=== PATIENT | male | born 1955 | race Caucasian/White ===

== ENCOUNTER 2020-06-25 07:36 | Observation (INO) | payer MEDICARE, OTHER ==
[~2020-06-25] VITALS: Ht 180.3 cm; Wt 102.5 kg
[2020-06-25] VITALS (14 sets, daily range): BP systolic 124–150; BP diastolic 55–97
--- NOTE | ~2020-06-25 | H ---
[address] [address] HISTORY AND PHYSICAL Name: Pema JACOB Room: [address] Roslyn Torres#: [id number] Admission: 06/25/20 Attend Phys: Stanford Burton MD, Discharge: 06/26/20 Date of : 55 Report #: [id number] THIS REPORT FOR: //name// cc: Laazro Welch James V. DO ~ Please refer to the History and Physical performed in the physician's office. By: [facility] Records Staff [facility] /JERRY
[~2020-06-25 07:36] MED LIST: ACCUPRIL40 MG PO; ASPIR 8181 MG PO; BENTYL 20 MG TA20 M1 PO; EFFIENT10 MG PO; LASIX 20 MG TAB20 MG PO; LIPITOR80 MG PO; ONDANSETRON HCL4 M2 PO; VOTRIENT200 MG PO
[2020-06-25 08:49] LABS: HEMATOCRIT 47.6 % (42.0-52.0); HEMOGLOBIN 16.3 gm/dL (14.0-18.0); MCH 37.7 pg (26.0-34.0); MCHC 34.3 g/dL (28.0-37.0); MCV 109.9 fL (80.0-100.0); MPV 9.5 fl. (7.2-11.1); RBC 4.33 mil/uL (4.50-6.00); WBC 4.8 thou/uL (4.0-11.0)
[2020-06-25 08:54] LABS: ANION GAP 10 mmol/L (7-16); BUN 17 mg/dL (7-18); CALCIUM 8.1 mg/dL (8.5-10.1); CHLORIDE 104 mmol/L (98-107); CO2 23 mmol/L (21-32); CREATININE 1.4 mg/dL (0.6-1.3); GLUCOSE 103 mg/dL (70-99); POTASSIUM 4.4 mmol/L (3.5-5.1); SODIUM 137 mmol/L (136-145)
[2020-06-25 08:57] LABS: APTT 28.7 Seconds (25.0-31.3); PROTIME 10.7 Seconds (9.20-11.50)
[2020-06-25 08:58] LABS: ALBUMIN 3.4 g/dL (3.4-5.0); ALKALINE PHOSPHATASE 91 U/L (46-116); CHOLESTEROL 182 mg/dL (<200); HDL CHOLESTEROL 34 mg/dL (>40); LDL CHOLESTEROL 112 mg/dL (<100); SERUM ASSESSMENT Clear; SGOT 28 U/L (15-37); SGPT 30 U/L (30-65); TC:HDL 5.4 Ratio (Not establshd); TOTAL BILIRUBIN 0.8 mg/dL (<0.1-1.0); TOTAL PROTEIN 7.3 g/dL (6.4-8.2); TRIGLYCERIDE 182 mg/dL (<150); VLDL 36 mg/dL (<40)
[2020-06-25] MEDS ORDERED: CREON DR 3,0001 EACH PO (09:13)
--- NOTE | 2020-06-25 14:25 | EKG ---
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 : 1955 Requested By: Stanford Burton Order Number: [id number] Stefan MD: Stanford Burton Measurements Intervals [place] Rate: 69 P: [place]: QRS: -46 QRSD: 114 T: 259 QT: 392 QTc: 420 Interpretive Statements Atrial fibrillation Incomplete left bundle branch block Inferior infarct, age indeterminate possible Compared to ECG 07/24/2017 07:55:55 Incomplete left bundle-branch block now present Sinus rhythm no longer present Myocardial infarct finding still present Electronically Signed On 06-25-2020 14:25:24 CDT by Stanford Burton [email or web address] <ELECTRONICALLY SIGNED> By: Stanford Burton MD, [facility] 06/25/20 1425 3 3 Stanford Burton MD, [facility] /EPI
--- NOTE | 2020-06-25 14:26 | EKG ---
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1955 Requested By: Stanford Burton Order Number: [id number] Stefan MD: Stanford Burton Measurements Intervals [place] Rate: 82 P: [place]: QRS: -43 QRSD: 112 T: -43 QT: 394 QTc: 461 Interpretive Statements Atrial fibrillation Incomplete left bundle branch block Inferior infarct, old possible Compared to ECG 06/25/2020 09:14:34 No significant changes Electronically Signed On 06-25-2020 14:25:52 CDT by Stanford Burton [email or web address] <ELECTRONICALLY SIGNED> By: Stanford Burton MD, [facility] 06/25/20 1425 1206 1206 Stanford Burton MD, [facility] /EPI
--- NOTE | 2020-06-25 14:49 | CARD ---
[address] [address] CARDIAC CATH REPORT Name: Pema JACOB Room: [address] Roslyn Torres#: [id number] Admission: 06/25/20 Attend Phys: Stanford Burton MD, Discharge: Date of : 55 Report #: [id number] THIS REPORT FOR: //name// cc: Lazaro Welch James V. DO ~ APPROVED REPORT Study performed: 06/25/2020 09:23:45 Patient Details Patient Status: Out-Patient Room #: 215 The patient is a 64 year-old male Event Personnel Stanford Burton Oracle Pl Sql Developer, Jimi Diaz RN Box Turner, Lazaro Francis MALTED MILK SUPERVISOR Scrub, Chayo Sauceda RTR Monitor Procedures Performed Art Access - R femoral artery, Left Heart Cath w/or w/o Coronaries LHC, [facility] [facility] w/wo Plasty Single RPLA , [facility] [facility] w/wo Plasty Additional RPDA , Hemostasis w/ Angioseal Indication Unstable angina , Positive stress test Risk Factors Obesity, Hypercholesterolemia Previous Procedures/Diagnoses Previous PCI, Previous CT Admission/Lab Medications/Medications given during procedure Angiomax IV 16 ml, Angiomax Drip IV 35.9 ml per hr, Effient PO 60 mg, Aspirin PO 162 mg Procedure Narrative The patient was brought electively to the Cardiac Catheterization Laboratory and was prepped and draped in a sterile manner. The right femoral groin area was infiltrated with 2% Lidocaine subcutaneous anesthesia. A 6F [place] sheath was inserted into the right femoral artery. Coronary angiography was performed using coronary diagnostic catheters. The right coronary system was accessed and visualized with a 6F 3DRC catheter. The left coronary system was accessed and visualized with a 6F JL4 catheter. The [place] [address] CARDIAC CATH REPORT Name: Pema JACOB Room: [address]#: [id number] Admission: 06/25/20 Attend Phys: Stanford Burton MD, Discharge: Date of : 55 Report #: [id number] and visualized with a 6F Pigtail catheter. Left ventricular/Aortic Valve gradient assessed via catheter pullback. Left ventriculogram was performed in GONZALEZ projection. Pre-demployment femoral angiogram was performed . Closure device was deployed with a 6 Fr Angioseal STS. The patient tolerated the procedure well and there were no complications associated with the procedure. There was no hematoma. The MERCADO graft was accessed with a 6F JR4 catheter and visualized with a 6F IM catheter. Intraoperative Conscious Sedation Sedation start time: 09:43 Case end Time: 11:07 Versed 2 mg Fluoro Time: 31.3 minutes Dose: DAP 126351 cGycm2 4527 mGy Contrast Type and Amount: Visipaque 550 ml Coronary Angiography The patient's coronary anatomy is right dominant. [place] Artery Percent Stenosis 1. Widely patent MERCADO graft to the mid LAD Diagnostic Cath Left Main 30% distal left main coronary narrowing LAD 100% proximal LAD occlusion after the first diagonal branch Diagonal 1 0% narrowing Circumflex 100% proximal occlusion Right Coronary Large dominant vessel with 40% proximal 40% mid and 30% distal narrowing with 90% mid posterolateral branch stenosis and tandem 80 and 90% proximal and mid posterior descending branch stenosis Left Ventriculography The left ventricle is normal in size with Decreased contractility. The left ventricular ejection fraction is estimated to be 40%. Left ventricular wall motion abnormalities are present. There is no mitral insufficiency. Inferobasilar akinesis and mild mid anterior hypokinesis is noted Hemodynamics The aortic pressure is 132/77 mmHg with a mean of 95 mmHg. The left ventricular pressure is 133/8 mmHg with a mean of mmHg. The left ventricular end diastolic pressure is 13 mmHg. [place] [address] CARDIAC CATH REPORT Name: Pema JACOB Room: [address] [id number] Admission: 06/25/20 Attend Phys: Stanford Burton MD, Discharge: Date of : 55 Report #: [id number] across the aortic valve upon pullback. PCI Technique Lesion Anticoagulation was achieved with Angiomax. Patient was preloaded with Angiomax IV 16 ml. Percutaneous coronary intervention was performed on the right posterior lateral artery segment. The lesion stenosis prior to intervention was 90% with MONIKA 3 flow. A 6FR LAUNCHER 3DRC Guide Catheter was used to engage the right ostium. A ProwaterFlex 180CM Interventional Guidewire was used to cross the lesion. BALLOON DILATION A Balloon catheter Mini Trek RX 2.0 X 12 was inserted and inflated up to 12.00atm for 14seconds. Additional Inflation: 18.00atm for 9seconds. Additional Inflation: 20.00atm for 8seconds. STENT DEPLOYMENT A drug-eluting stent Gerlaw RX Stent 2.0X15mm was inserted and inflated up to 10.00atm for 7seconds. Additional Inflation: 12.00atm for 7seconds. Additional Inflation: 14.00atm for 7seconds. Final angiography reveals 0 % stenosis with MONIKA 3 flow. COMMENTS PCI was complex by virtue of marked calcification and tortuosity of the right coronary system requirement placement of a bailey wire for balloon positioning and stent deployment PCI Technique Lesion 2 Percutaneous Coronary Intervention was performed on the right posterior descending artery segment. Patient was preloaded with Angiomax IV 16 ml. The lesion stenosis prior to intervention was 90% with MONIKA 3 flow. A 6FR LAUNCHER 3DRC Guide Catheter was used to engage the right ostium. A ProwaterFlex 180cm and BMW 190cm Interventional Guidewire was used to cross the lesion. Balloon Dilation A Balloon catheter Mini Trek RX 2.0 X 12 was inserted and inflated up to 12.00atm for 11seconds. Additional Inflation: 15.00atm for 7seconds. Additional Inflation: 18.00atm for 6seconds. Additional inflations: 18 yesenia for 10 seconds; 18 yesenia for 4 seconds; 20 yesenia for 9 seconds. A balloon catheter NC Euphora 2.25 x 12 was inserted and inflated up to 10 yesenia for 9 seconds. Additional inflations: 14 yesenia for 8 seconds; 16 yesenia for 10 seconds; 20 yesenia for 7 seconds; 22 yesenia for [address] [address] CARDIAC CATH REPORT Name: Pema JACOB Room: [address] Roslyn SmithBarryMarleneBarry#: [id number] Admission: 06/25/20 Attend Phys: Stanford Burton MD, Discharge: Date of : 55 Report #: [id number] Stent Deployment A drug-eluting stent John RX Stent 2.0X8mm was inserted and inflated up to 10.00atm for 8seconds. Additional Inflation: 12.00atm for 6seconds. Additional Inflation: 14.00atm for 6seconds. A 2nd drug eluting stent John RX 2.0 x 12mm was inserted and inflated up to 14 yesenia for 7 seconds. Additional inflations: 17 yesenia for 7 seconds; 18 yesenia for 7 seconds; 20 yesenia for 8 seconds. A 3rd drug eluting stent Gerlaw RX 2.0 x 8mm was inserted and inflated up to 12 yesenia for 7 seconds. Additonal inflations: 15 yesenia for 7 seconds; 16 yesenia for 6 seconds. Final angiography reveals 10 % stenosis with MONIKA 3 flow. Comments 014 pro-water flex and 014 BMW wires were placed in the distal right coronary system with the use of the bailey wire technique Conclusion 1. Severe multivessel coronary artery disease characterized by the following: A 30% distal left main coronary B total occlusion the proximal LAD after the prominent first diagonal branch C total occlusion of the proximal nondominant circumflex D large dominant right coronary artery with 40% proximal and mid vessel narrowing with 30% distal narrowing; there was 90% stenosis in the midportion of the prominent posterior lateral branch and tandem 80 and 90% stenosis of the prominent posterior descending branch 2. Single patent MERCADO graft to the mid LAD with good distal flow 3. Moderate impairment in global LV function, estimated ejection fraction being 40% with inferobasal akinesis and mild mid anterior hypokinesis 4. Normal left-sided hemodynamic study 5. Successful PCI with deployment of drug-eluting stent in the mid portion of the postero- lateral branch of the distal right coronary [address] [address] CARDIAC CATH REPORT Name: Pema JACOB Room: [address] Roslyn Torres#: [id number] Admission: 06/25/20 Attend Phys: Stanford Burton MD, Discharge: Date of : 55 Report #: [id number] artery with 0% residual narrowing 6 successful PCI with deployment of sequential drug-eluting stents at the sites of tandem 80 and 90% posterior descending branch stenosis with 10% residual narrowing and MONIKA-3 flow to the distal vessel Recommendations Cardiac Risk Reduction Program Aggressive Medical Therapy Medications Administered Aspirin (any) Prasugrel Diagnostic Cath Approved by: Stanford Burton MD Date/Time: 06/25/2020 14:45:50 <ELECTRONICALLY SIGNED> By: Stanford Burton MD, FACC 06/25/20 1449 1449 1449Stanford Burton MD, FACC /INF
[2020-06-26 04:00] VITALS: BP 125/74
[2020-06-26 04:51] LABS: HEMATOCRIT 44.1 % (42.0-52.0); HEMOGLOBIN 15.2 gm/dL (14.0-18.0); MCH 37.7 pg (26.0-34.0); MCHC 34.5 g/dL (28.0-37.0); MCV 109.5 fL (80.0-100.0); MPV 9.7 fl. (7.2-11.1); RBC 4.02 mil/uL (4.50-6.00); RDW-CV 16.1 % (10.5-14.5); WBC 5.2 thou/uL (4.0-11.0)
[2020-06-26 05:25] LABS: ALBUMIN 2.9 g/dL (3.4-5.0); CALCIUM 8.1 mg/dL (8.5-10.1); CREATININE 1.4 mg/dL (0.6-1.3); POTASSIUM 4.3 mmol/L (3.5-5.1); TOTAL BILIRUBIN 0.7 mg/dL (<0.1-1.0); TOTAL PROTEIN 6.4 g/dL (6.4-8.2)
[2020-06-26 05:37] LABS: TROPONIN-I LEVEL 1.44 ng/mL (<0.06)
[2020-06-26 07:50] VITALS: BP 125/81
[2020-06-26] MEDS ORDERED: EFFIENT10 MG PO (09:39)
[2020-06-26 10:46] VITALS: BP 138/87
[2020-06-26 10:47] VITALS: BP 125/81
--- NOTE | 2020-06-26 13:40 | EKG ---
[place] [address] ELECTROCARDIOGRAM REPORT Name: Pema JACOB Room: [address] [id number] Admission: 06/25/20 Attend Phys: Sarah Valdes Discharge: 06/26/20 Date of : 55 Date of Service: 06/26/20 0651 Report #: [id number] THIS REPORT FOR: //name// 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 : 1955 Requested By: Stanford Burton Order Number: [id number] Reading MD: Jamil Cantu Measurements Intervals [place] Rate: 68 P: [place]: QRS: -48 QRSD: 111 T: -75 QT: 424 QTc: 451 Interpretive Statements Atrial fibrillation Abnormal R-wave progression, late transition Inferior infarct, age indeterminate Lateral leads are also involved Compared to ECG 06/25/2020 12:06:10 Left bundle-branch block no longer present Myocardial infarct finding still present Electronically Signed On 06-26-2020 13:40:15 CDT by Jamil Cantu [email or web address] <ELECTRONICALLY SIGNED> By: Jamil Cantu MD, FACC 06/26/20 1340 0651 0651 Jamil Cantu MD, FACC /EPI
--- NOTE | 2020-06-27 09:54 | D ---
[address] [address] DISCHARGE SUMMARY Name: Pema JACOB Room: [address] Roslyn Torres#: [id number] Admission: 06/25/20 Attend Phys: Stanford Burton MD, Discharge: 06/26/20 Date of : 55 Report #: [id number] THIS REPORT FOR: //name// cc: Lazaro Welch James V. DO ~ THIS REPORT FOR: //name// CC: Lazaro Burton DATE OF SERVICE: 06/26/2020 FINAL DISCHARGE DIAGNOSES: 1. Abnormal nuclear stress test. 2. Recurrent and unstable angina. 3. Coronary artery disease, status post remote coronary artery bypass grafting. 4. Status post multiple percutaneous coronary interventions, most recently to the distal right coronary artery on 06/25/2020. 5. Persistent atrial fibrillation. 6. Hypertension. 7. Ischemic cardiomyopathy. 8. Hyperlipidemia. PROCEDURES: 06/25/2020 -- left heart catheterization, left ventriculography, selective coronary arteriography, aortocoronary bypass graft study with MERCADO graft definition, and percutaneous coronary intervention to the posterior descending and posterolateral branches of the distal right coronary artery. HOSPITAL COURSE: The patient is a very pleasant and active 64-year-old male with multiple medical problems including both renal and pancreatic carcinoma. He has complex coronary artery disease, status post prior PCIs of remote coronary artery bypass grafting. Recently, he has noted recrudescence of chest pain similar to his prior angina and nuclear stress test revealed apical and inferolateral inducible ischemia. Given this data, I elected to proceed with cardiac catheterization on 06/25/2020. That revealed severe coronary artery disease characterized by total occlusion of the proximal LAD and proximal circumflex with a widely patent diagonal before the LAD occlusion. The right coronary artery revealed modest narrowings in the proximal, mid and distal portions with a 90% stenosis in the mid portion of the prominent posterolateral branch of the distal right coronary artery and tandem 80-90% stenosis of the prominent posterior descending branch of the distal right coronary artery. Given this data, I proceeded with percutaneous coronary intervention, deploying 1 drug-eluting stent in the posterolateral branch and 3 [place] [address] DISCHARGE SUMMARY Name: Pema JACOB Room: [address] [id number] Admission: 06/25/20 Attend Phys: Stanford Burton MD, Discharge: 06/26/20 Date of : 55 Report #: [id number] descending branch with 0% and 10% residual narrowings following stent deployment. The patient did well post-procedurally. His troponin harsha minimally to 1.44. He was clinically stable without chest pain post-procedurally. Additional lab revealed a hemoglobin of 15.2, white blood cell count of 5200 with 90,000 platelets. Sodium 137, potassium 4.3, BUN 18, creatinine 1.4, unchanged from preprocedurally, and glucose 106 mg percent. DISCHARGE MEDICATIONS: He was discharged to home on the following medications: Aspirin 81 mg daily, Effient or prasugrel 10 mg daily with a 60 mg loading dose in the hospital, lisinopril 40 mg daily, Lipitor 80 mg daily, Votrient 800 mg daily, quinapril 40 mg daily, Lasix 20 mg p.r.n., [id number] 2-3 capsules with meals. I will plan to see the patient in followup on 07/31/2020 at 1300 at [facility] office. Therefore, the patient is discharged to home in stable condition on the aforementioned medications with followup as reiterated above. FINAL DISCHARGE DIAGNOSES: 1. Positive nuclear stress test. 2. Coronary artery disease, status post coronary artery bypass grafting and percutaneous coronary intervention. 3. Persistent atrial fibrillation. 4. Hypertension. 5. Ischemic cardiomyopathy. 6. Hyperlipidemia. <ELECTRONICALLY SIGNED> By: Stanford Burton MD, [facility] 06/27/20 0954 0959 1033Joelina Burton MD, FAC /nt
== END 2020-06-26 11:06 | disposition home or self-care (01) ==
LOC: M.CL 07:36 → M.TBA-CV 11:23 → M.2W 11:40
PROVIDERS: ADMIT Internal Medicine; ATTEND Internal Medicine
DX: I25.110 Atherosclerotic heart disease of native coronary artery with unstable angina pectoris (principal); I48.19 Other persistent atrial fibrillation; I10 Essential (primary) hypertension; E78.5 Hyperlipidemia, unspecified; I25.5 Ischemic cardiomyopathy; E78.00 Pure hypercholesterolemia, unspecified; E66.9 Obesity, unspecified; Z68.31 Body mass index [BMI] 31.0-31.9, adult; Z79.82 Long term (current) use of aspirin; Z79.899 Other long term (current) drug therapy; Z20.828 Contact with and (suspected) exposure to other viral communicable diseases